=== PATIENT | male | born 1940 | race Hispanic/Latino ===

== ENCOUNTER 2018-01-10 17:16 | Emergency (ER) | payer MEDICARE ==
[~2018-01-10] VITALS: Ht 172.7 cm; Wt 61.2 kg
--- OUTSIDE RECORDS SUMMARY | 2018-01-10 17:18 | XMS REPORT | Clinical Summary ---
Author Author [facility] Organization [facility] Address Unknown Phone Unavailable Care Team Providers Care Tunneller Name Role Phone Elisa Chaudhry MD PCP Allergies Active Allergy Reactions Severity Noted Date Comments Gadolinium-Containing Other (See Comments) High 08/04/2016 Cannot take due to kidney Contrast Media function. Iodinated Contrast- Oral Other (See Comments) High 08/04/2016 Cannot take due to kidney And Iv Dye function. Current Medications Prescription Sig. Disp. Refills Start End Date Status Date amLODIPine (NORVASC) 10 06/23/20 Active MG tablet 16 atorvastatin (LIPITOR) 40 07/21/20 Active MG tablet 16 BUMETanide (BUMEX) 1 MG 07/20/20 Active tablet 16 carvedilol (COREG) 25 MG 07/20/20 Active tablet 16 clobetasol (TEMOVATE) 07/12/20 Active 0.05 % external solution 16 clonIDINE (CATAPRES) 0.1 06/23/20 Active MG tablet 16 clopidogrel (PLAVIX) 75 07/08/20 Active mg tablet 16 fenofibrate (LOFIBRA) 54 05/27/20 Active MG tablet 16 fluticasone (CUTIVATE) 07/03/20 Active 0.05 % cream 16 hydrALAZINE (APRESOLINE) 07/25/20 Active 25 MG tablet 16 HUMULIN N KWIKPEN 100 07/21/20 Active unit/mL (3 mL) insulin 16 pen irbesartan (AVAPRO) 150 07/20/20 Active MG tablet 16 omeprazole (PriLOSEC) 40 07/20/20 Active MG capsule 16 venlafaxine (EFFEXOR) 06/23/20 Active 37.5 MG tablet 16 Active Problems Problem Noted Date Vitreous prolapse 08/04/2016 Last Assessment & Plan: Prior trauma? Slight iris asymmetry as a result. No traction/vision impact, so follow for now. Pseudophakia 08/04/2016 Overview: Done by [facility] 4-5 years ago. Ptosis 08/04/2016 Last Assessment & Plan: Followed by Dr. Hua. To see him in 2 months. Left upper lobe pneumonia 10/04/2015 Elevated troponin I level 03/29/2015 Chronic coronary artery disease 08/19/2014 Chest pain 06/12/2013 Osteoarthritis 02/18/2012 Overview: Overview: Converted from [facility] UPDATED BY ICD10 SNOMED/IMO UPDATES Diabetes mellitus 02/18/2012 Overview: Overview: Converted from [facility] Essential hypertension 02/18/2012 Overview: Overview: Converted from [facility] HLD (hyperlipidemia) 07/21/2010 Overview: Overview: Converted from [facility] Atherosclerosis of coronary artery 07/15/2010 Overview: Overview: Converted from [facility] UPDATED BY ICD10 SNOMED/IMO UPDATES Urologic disorder 07/15/2010 Overview: Overview: Converted from [facility] Anxiety state 07/13/2010 Overview: Overview: Converted from [facility] Depression 07/13/2010 Overview: Overview: Converted from [facility] Family History Medical History Relation Name Comments Heart disease Brother Stroke Brother Diabetes Father Heart disease Mother Stroke Mother Heart disease Sister Stroke Sister Relation Name Status Comments Brother Father Mother Sister Social History Tobacco Use Types Packs/Day Years Used Date Never Smoker Alcohol Use Drinks/Week oz/Week Comments No Sex Assigned at Date Recorded Not on file Last Filed Vital Signs Not on file Plan of Treatment Health Maintenance Due Date Last Done Comments FOOT EXAM 1951 ZOSTER VACCINE 2001 PNEUMOCOCCAL 2006 POLYSACCHARIDE VACCINE AGE 65 AND OVER PNEUMOCOCCAL-13 2006 INFLUENZA VACCINE 05/24/2017 08/14/2009, 07/29/2008 OPHTHALMOLOGY EXAM 08/04/2017 08/04/2016 Results Not on fileafter 01/09/2017 Insurance Payer Benefit Subscriber ID Type Phone Address Plan / Group MEDICARE MEDICARE xxxxxxxxxx Medicare [place], [place] PART A AND B AARP AARP xxxxxxxxxxx Commercial SUPPLEMENT
[2018-01-10] MEDS ORDERED: BACITRACIN ZINC 15 GM OINT TOP SCH (18:15)
[2018-01-10 18:24] VITALS: BP 132/78
== END 2018-01-10 18:26 | disposition home or self-care (01) ==
LOC: FSED 17:16
DX: S91.205A Unspecified open wound of left lesser toe(s) with damage to nail, initial encounter (principal); L03.032 Cellulitis of left toe; E11.9 Type 2 diabetes mellitus without complications; I10 Essential (primary) hypertension; N18.9 Chronic kidney disease, unspecified; E78.5 Hyperlipidemia, unspecified; E03.9 Hypothyroidism, unspecified; Z95.1 Presence of aortocoronary bypass graft
CPT/HCPCS: 99283